=== PATIENT | male | born 1985 | race Asian ===

== ENCOUNTER 2018-03-05 19:40 | Emergency (ER) | payer OTHER ==
--- NOTE | 2018-03-05 20:42 | XR ---
PROCEDURE: XR cervical spine comp, 5 views DATE AND TIME: 03/05/2018 8:27 PM REFERRING PHYSICIAN: Rashawn Mark CLINICAL INDICATION: PHH, Pain TECHNIQUE: 5 views COMPARISON: None FINDINGS: There is no fracture or malalignment. The soft tissues are unremarkable. IMPRESSION: NO ACUTE PROCESS.
--- NOTE | 2018-03-05 20:47 | XR ---
PROCEDURE: XR lumbar spine 3V DATE AND TIME: 03/05/2018 8:26 PM REFERRING PHYSICIAN: Rashawn Mark CLINICAL INDICATION: PHH, Pain TECHNIQUE: Department protocol. COMPARISON: None FINDINGS: There is no fracture or malalignment. The soft tissues are unremarkable. IMPRESSION: NO ACUTE PROCESS.
--- NOTE | 2018-03-05 20:48 | ED ---
General Adult HPI - General Chief complaint: Neck Pain/Injury Stated complaint: Left shoulder and Neck Pain Time Seen by Provider: 03/05/18 20:00 Source: patient, EMS, RN notes reviewed Mode of arrival: EMS Limitations: no limitations - History of Present Illness Initial comments: 32-year-old male presents the emergency department for a chief complaint of left back pain. Patient states he was walking in the bathroom when he suddenly felt a spasm in the left side of his back which brought him to the floor. Patient denies falling or hitting his head. Patient states there is a spasm in the upper left part of his back in the lower left part of his back. He denies any pain in the right side of the back. Patient states it hurts to move his left arm and rotate his neck to the left. He can however rotate his neck to the right. Patient denies numbness, weakness, or tingling in the left arm. Patient denies any headaches or visual changes. Patient denies any pain in his legs. Patient is currently a [facility] patient for alcohol and was brought to the emergency department by EMS. He has not taken any ibuprofen for pain relief. - Related Data Previous Rx's Medication Instructions Recorded Ibuprofen [Motrin] 600 mg PO Q8HR PRN #20 tab 03/05/18 Allergies Allergy/AdvReac Type Severity Reaction Status Date / Time No Known Allergies Allergy Verified 03/05/18 19:59 Review of Systems ROS Statement: Those systems with pertinent positive or pertinent negative responses have been documented in the HPI. ROS Other: All systems not noted in ROS Statement are negative. Past Medical History Past Medical History: No Reported History History of Any Multi-Drug Resistant Organisms: None Reported Past Surgical History: Back Surgery, Hernia Repair Past Psychological History: No Psychological Hx Reported Smoking Status: Current every day smoker Past Alcohol Use History: Abuse Past Drug Use History: Marijuana, Prescription Drug Abuse General Exam Limitations: no limitations General appearance: alert, in no apparent distress Head exam: Present: atraumatic, normocephalic, normal inspection Eye exam: Present: normal appearance, PERRL, EOMI. Absent: scleral icterus, conjunctival injection, periorbital swelling Neck exam: Present: normal inspection. Absent: tenderness, meningismus, full ROM (Patient has limited range of motion with rotation to the left side.), lymphadenopathy Respiratory exam: Present: normal lung sounds bilaterally. Absent: respiratory distress, wheezes, rales, rhonchi, stridor Cardiovascular Exam: Present: regular rate, normal rhythm, normal heart sounds. Absent: systolic murmur, diastolic murmur, rubs, gallop, clicks Extremities exam: Present: normal inspection, normal capillary refill (Refill less than 2 seconds in of bricks remedies bilaterally.), other (Radial pulses 2 + in upper extremities bilaterally. Patient has full sensation to light touch in upper extremity is bilaterally). Absent: full ROM (Patient has limited motion of the left arm with flexion and extension abduction and abduction.), tenderness, pedal edema, joint swelling, calf tenderness Back exam: Present: tenderness (Patient has tenderness to the left side of the lumbar spine.). Absent: full ROM (Patient has limited flexion and extension of lumbar spine.), CVA tenderness (R), CVA tenderness (L), vertebral tenderness ( No vertebral tenderness from cervical to lumbar spine.) Neurological exam: Present: alert, oriented X3, CN II-XII intact Psychiatric exam: Present: normal affect, normal mood Course Vital Signs 03/05/18 21:11 Temperature 97.6 F Pulse Rate 85 Respiratory 16 Rate Blood Pressure 129/76 O2 Sat by Pulse 96 Oximetry Medical Decision Making - Medical Decision Making 32-year-old male presents the emergency room for a chief complaint of back pain. Patient states he is having back pain around the lumbar and cervical area. No spinal tenderness. Patient does have some tenderness lateral to the lumbar spine on the left side. Patient has limited range of motion of the left arm due to pain. Patient denies any numbness tingling or weakness in the left arm. Patient denies any symptoms in the legs. Patient has no neuro deficit. Patient denies headache. Patient denies hitting his head when he fell to the ground due the spasm. Patient states he fell on his hands his knees and did not hurt his hands or knees. X-ray of the cervical and lumbar spines were obtained and there is no acute process. Patient was given Toradol and feels much better. Patient will return to [facility] with ibuprofen. He will return to the emergency department if he has any worsening symptoms. Patient requested "a day of rest" due to the pain. He states he is working tomorrow so I wrote a note for him. Disposition Clinical Impression: Back pain Disposition: HOME SELF-CARE Condition: Good Instructions: Cervical Strain (ED), Back Pain (ED) Additional Instructions: Please take Motrin as directed. Please follow-up with primary care provider in one to 2 days. If symptoms worsen please return to the emergency department. Prescriptions: Ibuprofen [Motrin] 600 mg PO Q8HR PRN #20 tab PRN Reason: Pain Referrals: None,Stated [Primary Care Provider] - 1-2 days Time of Disposition: 21:10
[2018-03-05] MEDS ORDERED: KETOROLAC 30 MG/ML 1 ML VIAL IVP STA (20:59)
[2018-03-05 21:12] VITALS: BP 129/76; PULSE 85; RESP 16; TEMP 97.6
== END 2018-03-05 21:42 | disposition home or self-care (01) ==
LOC: EC 19:40
DX: M54.5 Low back pain (principal); M54.2 Cervicalgia; F10.10 Alcohol abuse, uncomplicated; F17.200 Nicotine dependence, unspecified, uncomplicated
CPT/HCPCS: 99283 ×2; 96374 ×2; 72050; 72100; J1885